=== PATIENT | male | born 1945 | race Caucasian/White ===

== ENCOUNTER 2023-04-23 11:20 | Day surgery (SDC) | payer MEDICARE, OTHER, SELFPAY ==
[2023-04-23] VITALS (15 sets, daily range): BP systolic 137–167; BP diastolic 84–139; BMI 33.6
[2023-04-23 11:55] LABS: Hematocrit 42.9 % (39.0-52.0); Hemoglobin 14.4 g/dL (13.0-18.0); Mean Corp Hgb Conc. 33.6 g/dL (33.0-37.0); Mean Corpuscular Hgb 29.3 pg (27.0-31.0); Mean Corpuscular Volume 87.2 fL (80.0-94.0); Mean Platelet Volume 9.8 fL (7.4-10.4); Platelet Count 237 10^3/uL (130-400); Red Blood Cell Count 4.92 10^6/uL (4.70-6.10); Red Cell Dist. Width 13.6 % (11.5-14.5); White Blood Cell Count 7.9 10^3/uL (4.8-10.8)
[2023-04-23] MEDS: NSS 1000 IV ×2 (12:00→17:18)
--- NOTE | 2023-04-23 16:34 | ITS.CL.CATH ---
Factory Machine Computer Operator - Catheterization
Cardiac Catheterization
Procedure Report:
CARDIAC CATHETERIZATION REPORT
Date of Procedure: 04/23/2023
Referring: Freddie Cruz MD
Indication: Worsening exertional dyspnea with severe left ventricular dysfunction and significant inferolateral ischemia on stress testing
HEMODYNAMIC DATA
AO: 164/92
LV: 164/20
LEFT VENTRICULOGRAPHY: Left ventricular enlargement with apical akinesis with severe anterolateral hypokinesis with EF 28%
CORONARY ANGIOGRAPHY
Dominance: Right
Left Main: Normal
LAD: The LAD is occluded at its origin. A widely patent BLANCO graft touches down into the mid LAD. There are multiple segmental high-grade lesions in the distal LAD extending to the apex. There is backfilling through the LAD to the proximal vessel
and with this retrograde flow there is filling of numerous septal perforators and a moderate to large diagonal branch.
Ramus: There is a large bifurcating ramus. The bifurcation is in the mid portion and there is 1 small daughter branch and 1 large daughter branch. There is 90% stenosis in the large daughter branch just distal to the bifurcation.
Circumflex: The circumflex has a 95% proximal stenosis. This lesion is just proximal to the takeoff of a tiny OM1 and a large OM 2. The distal circumflex gives rise to a small to medium sized diffusely diseased OM 3 and a single left
posterolateral branch. The large OM 2 has 30% mid stenosis.
RCA: The RCA is calcified with a widely patent proximal stent (PAOLA 2001). There is 50% mid RCA stenosis proximal to the crux. There is another 50% distal RCA lesion past the crux. The PDA is a small caliber vessel with moderate diffuse disease.
The RCA terminates with two medium sized right posterolateral branches.
Bypass grafts: The patient underwent single-vessel BLANCO-LAD grafting in 1993. The BLANCO graft remains widely patent with runoff as discussed above
Angioplasty: At the conclusion of diagnostic study we attempted proximal circumflex PCI with an eye toward also treating the ramus intermedius branch. Heparin was used for anticoagulation. An AL 2 guide catheter was used and provided reasonable
backup support. A BMW wire could not be passed through the nearly occluded severely calcified proximal LAD lesion. A Fielder XT wire was able to get through the lesion with persistent effort and some very good fortune. This wire was placed in the
large OM 2. A 1.5 x 10 Euphora balloon was successfully passed through the lesion and angioplasty performed to 17 beverly. The balloon was removed and a 2.25 x 12 NC Euphora was then advanced through the lesion and angioplasty performed to 16 beverly.
There was complete balloon expansion. We attempted to pass a 2.75 x 8 Donny stent across the lesion but this would not advance into the lesion and the undeployed stent was carefully removed. We then advanced a guide liner into the circumflex and
this provided just enough backup support for us to get the stent to the target location where was deployed at 15 beverly then postdilated with a 3.0 x 6 NC Euphora balloon to 18 beverly. The angiographic result was outstanding with no evidence of residual
stenosis. At this point, we turned our attention to the ramus intermedius lesion. GuideLiner was removed from the circumflex. A whisper wire was successfully advanced through the 90% ramus stenosis. Balloon angioplasty with a 1.5 x 10 Euphora
resulted in balloon rupture at approximately 8 beverly. We then placed a 2.0 x 12 NC Euphora which was inflated to 14 beverly for 30 seconds. A second inflation was performed more proximally to 12 beverly. At this point we advanced the guide liner into the
vessel which provided the backup support needed to pass a 2.25 x 26 Nicasio PAOLA across the entire lesion. The stent was deployed at 14 beverly then postdilated with a 2.25 NC trek to 17 beverly. The final angiographic result was outstanding. There were no
procedural complications.
Closure Device: 6 Swedish Angio-Seal RFA
Radiation (mGy): 1984
DAP (cm2.Gy): 142.9
Fluoroscopy time: 25 minutes
CONCLUSIONS
1: Systemic hypertension
2: Left ventricular lodgment with apical akinesis and severe anterolateral hypokinesis with EF 28%
3. Severe multivessel CAD with patent BLANCO-LAD bypass graft
4. Successful stenting of 95% calcific proximal circumflex stenosis using 2.75 x 8 Nicasio PAOLA postdilated with 3.0 mm balloon
5. Successful stenting of 90% ramus intermedius stenosis using 2.25 x 26 Donny PAOLA
6. Recommend dual antiplatelet therapy for minimum 6 and ideally 12 months
7. Continue medical therapy directed at left ventricular dysfunction and CAD. Reassess LVEF in 3 months to determine appropriateness of ICD placement
Copy to: Freddie Cruz MD, Santiago Reaves DO
Adam Dao MD, FAC, [facility]
[2023-04-23] MEDS: SINEMET 25-100 PO (17:17)
[2023-04-23] MEDS: LOW STRENGTH ASPIRIN 81 MG PO (18:15)
--- NOTE | 2023-04-23 18:37 | PTCARENOTE ---
Rec'd report from Aure in medical lab director; rec'd pt AAOX3 w/no c/o CP or SOB, but pt does appear BAINS when scooting himself over from the stretcher to the bed on admission to the unit. Pt's BP elevated & MD aware. Pt's R groin site w/dressing C/D/I w/no
signs or symptoms of bleeding or hematoma. Reiterated pt's bedrest status until 183. Pt verbalizes his understanding. Pt w/call sanchez & phone in reach. No addtl needs at this time. Plan of care ongoing.
--- NOTE | 2023-04-23 22:18 | PTCARENOTE ---
Pt received at start of shift, HR appears to be in Sinus arrhythmia w/1st degree AV block. R groin dressing CDI. NSS infusing at 161mL/hr into LH IV.
Pt OOB w/RN assist to chair. Pt has steady gait, good balance. Educated pt on plan of care and cardiac rehab after discharge. Pt states they do not want to come all the way over here for cardiac rehab and would like to be closer to [place]. Pt
denies any CP, SOb, or lightheadedness/dizziness at this time. Informed to notify RN if any changes, call sanchez within reach.
Pt has splint on R middle finger. Skin under splint inspected, intact w/ no redness. Pt states this is to help with tendon 'jumping'. Has been going on for months, advised to follow up with primary.
[2023-04-23] MEDS: SINEMET 25-100 1 TABLET PO (22:51)
[2023-04-23] MEDS: TYLENOL 650 MG PO (22:52)
--- NOTE | 2023-04-23 23:32 | PTCARENOTE ---
Pt c/o 08/11 pain at R groin cath site. Dressing CDI, soft. PRN tylenol administered.
[2023-04-24 04:18] VITALS: BP 130/100
--- NOTE | 2023-04-24 04:26 | DOWNTIME ---
There was a [employer] Client Manufacturing Supervisor 2Nd Shift Downtime on 04/24/2023 from 0111 to 04/24/2023 at 0405. Downtime documentation of patient's care, including medication administrations, has been reconciled in the electronic record per guidelines. Refer to the
patient's paper chart under the miscellaneous tab to see printed paper medication records and downtime forms.
[2023-04-24 05:00] LABS: Hematocrit 37.8 % (39.0-52.0); Hemoglobin 13.1 g/dL (13.0-18.0); Mean Corp Hgb Conc. 34.7 g/dL (33.0-37.0); Mean Corpuscular Hgb 28.9 pg (27.0-31.0); Mean Corpuscular Volume 83.3 fL (80.0-94.0); Platelet Count 228 10^3/uL (130-400); Red Blood Cell Count 4.54 10^6/uL (4.70-6.10); Red Cell Dist. Width 13.6 % (11.5-14.5); White Blood Cell Count 7.3 10^3/uL (4.8-10.8)
[2023-04-24 05:29] LABS: Blood Urea Nitrogen 17 mg/dl (9-20); Carbon Dioxide 26 mmol/L (22-30); Chloride 101 mmol/L (98-107); Estimated Creatinine Clearance 99 ml/min; Glucose 97 mg/dl (70-99); HDL Cholesterol 49 mg/dl; LDL Cholesterol, Calculated 50 mg/dl; Sodium 133 mmol/L (135-145); Total Cholesterol 125 mg/dl (50-199); Triglyceride 134 mg/dl (10-149); Very Low Density Lipoprotein 26 mg/dl (0-30); eGFR > 60.00
[2023-04-24 06:00] VITALS: BMI 33.5
[2023-04-24 07:23] VITALS: BP 131/81
--- NOTE | 2023-04-24 07:53 | W.PN.CARDCBS ---
Addendum entered and electronically signed by Carson Duarte DO 04/24/23 11:53:
Attestation: I have seen and examined the patient. I can confirm Ms. Álvarez's findings and I agree with her assessment and plan as documented. 77-year-old gentleman with coronary disease status post remote single-vessel bypass (BLANCO to LAD, 1992)
and PCI to the RCA admitted for elective cardiac catheterization after discovery of a new systolic cardiomyopathy on echocardiogram and inferolateral ischemia on SPECT. Cardiac catheterization showed patent BLANCO to LAD with severely diseased
circumflex and ramus status post accessible PCI. The patient was started on appropriate, dual antiplatelet therapy. He is already on the majority of guideline directed medical therapy. We may add dapagliflozin depending on insurance coverage.
Repeat echocardiogram in 2 to 3 months. Referral to cardiac rehab. Stable for outpatient follow-up.
Original Note:
Today's Communication / Plan
-
DAPT w/asa, plavix
outpt echo in 2 months
cardiac rehab
follow w/Dr. Cruz
home today
Impression / Plan
-
PCP: Santiago Reaves MD
CDY: Jose Luis Cruz MD
77 y/o, PMH remote SD w/CAB x1 (1992) and subsequent RCA PCI (2001), presented to outpt cardiology with new BAINS and increasing LE edema. Echo with new EF drop to 35%, and PET NST with inferolateral ischemia and EF 32%.
LHC 04/23- Patent BLANCO-LAD
s/p prox LCx PAOLA and Ramus PAOLA
residual 50% mid and distal RCA stenosis
LVG- LV enlargement with apical AK, severe anterolat HK, EF 28%
IMPRESSION/PLAN:
CAD/ICM/Chronic systolic HFrEF 28-32%
s/p LCx, Ramus PCI
residual 50% m-d RCA
tele- NSR w/PACs, short 5-7bt NSVT
DAPT w/asa, plavix
continue toprol, benazepril
cardiac rehab consult
femoral cath site stable
will need outpt echo in 2 months to eval EF, if no improvement consider primary prevention ICD
consider SGLT2 inhibitor, spironolactone- can start as outpt per primary cards
followup w/Dr. Cruz as scheduled
HTN- stale on amlodipine, HCTZ, mehdi, BB
monitor trends
HLD- lipid profile noted, continue atorvastatin
GERD- stop omeprazole for rxn to plavix- will be on protonix
PreDM/Elevated fasting glucose- HgbA1C pending, management per primary
Progress Note - Crossbow Maker
Subjective
Date of Service: April 24, 2023
Denies cp/palps/dypsnea
oob ambulating
groin site without pain
Objective
Labs:
04/24/23 04:25
04/24/23 04:25
Labs
Hgb 13.1 g/dL (13.0-18.0) 04/24/23 04:25
Hct 37.8 % (39.0-52.0) L 04/24/23 04:25
Plt Count 228 10^3/uL (130-400) 04/24/23 04:25
Sodium 133 mmol/L (135-145) L 04/24/23 04:25
Potassium 4.0 mmol/L (3.5-5.1) 04/24/23 04:25
BUN 17 mg/dl (9-20) 04/24/23 04:25
Creatinine 0.8 mg/dL (0.7-1.3) 04/24/23 04:25
Glucose 97 mg/dl (70-99) 04/24/23 04:25
Vital Signs and I&O:
Vital Signs
Temp Pulse Resp BP Pulse Ox
97.6 F 63 16 130/100 96
04/24/23 07:28 04/24/23 05:15 04/24/23 07:28 04/24/23 04:18 04/24/23 07:28
Vital Signs
Temp Pulse Resp BP Pulse Ox
97.6 F 63 16 130/100 96
04/24/23 07:28 04/24/23 05:15 04/24/23 07:28 04/24/23 04:18 04/24/23 07:28
Intake & Output
04/22/23 04/23/23 04/24/23 04/25/23
06:59 06:59 06:59 06:59
Intake Total 1495 / 1495
Output Total 420 / 420
Balance 1075 / 1075
Physical Exam
Physical Exam
AAOx3, MAEE 5/5
RRR S1 S2 no murmurs
CTA bilat, non labored
soft abd, + bs
right femoral cath site without ht/bleeding, non tender
bilat extremities w/palpable distal pulses,no edema
[2023-04-24 08:34] LABS: ACT-LR - POC > 397 Seconds (116-155)
[2023-04-24 08:34] LABS: ACT-LR - POC > 397 Seconds (116-155)
[2023-04-24] MEDS: SINEMET 25-100 1 TABLET PO (08:38)
[2023-04-24] MEDS: ORETIC 25 MG PO (08:38)
[2023-04-24] MEDS: ZESTRIL 20 MG PO (08:38)
[2023-04-24] MEDS: PLAVIX 75 MG PO (08:38)
[2023-04-24] MEDS: NORVASC 5 MG PO (08:38)
[2023-04-24] MEDS: LOW STRENGTH ASPIRIN 81 MG PO (08:38)
[2023-04-24] MEDS: PROTONIX 40 MG PO (08:38)
[2023-04-24] MEDS: FLOMAX 0.400000000000000022 MG PO (08:38)
[2023-04-24] MEDS: LIPITOR 40 MG PO (08:38)
[2023-04-24] MEDS: TOPROL XL 50 MG PO (08:38)
[2023-04-24] MEDS: DITROPAN 5 MG PO (09:30)
--- NOTE | 2023-04-24 09:31 | CM ---
Addendum entered by Jania Aguirre 04/24/23 12:12:
Reviewed co-pay with Mr. Ferraro and he is agreeable to the $47.00 a month co-pay.
Addendum entered by Jania Aguirre 04/24/23 12:03:
Asked to check co-pay for Farxiga 10 mg daily. Telephone call to [employer], ([phone]) to check on co-pay for Farxiga would be $47.00 a month. He can use the one month free coupon. Placed coupon in his red discharge folder.
Original Note:
Reviewed chart. Met with Mr. Ferraro to review discharge plans. He states prior to admission he resides with his spouse in a spilt-level home with three steps to enter. He states he has four steps to get to his bedroom/full bathroom. He states prior
to admission he was independent with ambulation and adls. He states he does not have any DME in the home. He states he has a prescription plan and uses [facility]. The discharge plan is to return home with his spouse when medically stable.
[2023-04-24 10:36] VITALS: BP 146/96
[2023-04-24] MEDS: FARXIGA 10 MG PO (12:24)
[2023-04-24] MEDS: TYLENOL 650 MG PO (12:45)
--- NOTE | 2023-04-24 13:22 | PTCARENOTE ---
d/c instructions read to pt and pt verbalized understanding. removed IV and tele. pt left with belongings from room, educational material and lab slips. pt left via wheelchair with staff member.
--- NOTE | 2023-04-24 16:21 | W.DS.TRANS ---
DC Summary - Waterproof Bag Sewer
-
Discharge Instructions:
Discharge Diagnosis/Procedures Angioplasty and stent x1 to Left Circumflex and
x1 to Ramus arteries
Diet Low Cholesterol
Driving Restrictions No driving for 24 hours
Blood Work BMP in 1 week- results to Dr. Cruz
Other Services Cardiac Rehab
Stop these medications: STOP omeprazole- will interact with plavix- you
will take protonix instead
Instructions:
Stand-Alone Forms: DC Instructions- Cath/EP Lab
Changes to Home Medications: Yes
Discharge Medications:
DC Medications w/original date entered in [employer]
alfuzosin 10 mg tablet,extended release 24 hr 10 mg PO DAILY 04/23/23
amlodipine 5 mg tablet 5 mg PO DAILY 04/23/23
aspirin 81 mg capsule 81 mg PO DAILY 04/23/23
atorvastatin 40 mg tablet 40 mg PO DAILY 04/23/23
benazepril 20 mg tablet 20 mg PO DAILY 04/23/23
carbidopa 25 mg-levodopa 100 mg tablet 1 tab PO TID 04/23/23
hydrochlorothiazide 25 mg tablet 25 mg PO DAILY 04/23/23
metoprolol succinate 50 mg tablet,extended release 24 hr 50 mg PO DAILY 04/23/23
multivitamin with minerals-iron fumarate 9 mg iron/15 mL oral liquid (Multi Vitamin) 15 ml PO DAILY 04/23/23
oxybutynin chloride 10 mg tablet,extended release 24 hr 10 mg PO DAILY 04/23/23
vitamins A,C,M-nvun-humbww 2,148 mcg-113 mg-45 mg-17.4 mg tablet (PreserVision AREDS) 7,160 tab DAILY 04/23/23
clopidogrel 75 mg tablet 75 mg PO DAILY #90 tabs 04/24/23
dapagliflozin propanediol 10 mg tablet (Farxiga) 10 mg PO DAILY #90 tabs 04/24/23
nitroglycerin 0.4 mg sublingual tablet 0.4 mg sublingual [id number] PRN chest pain #25 tabs 04/24/23
pantoprazole 40 mg tablet,delayed release 40 mg PO DAILY #90 tabs 04/24/23
Home Medication Changes
NEW: clopidogrel, dapagliflozin, nitrostat, pantoprazole
STOP: omeprazole
Pending Results: No
== END 2023-04-24 13:25 | disposition home or self-care (01) ==
LOC: CATH 11:20
PROVIDERS: Nurse Practitioner; ATTENDING PHYSICIAN Internal Medicine Cardiovascular Disease; FAMILY PHYSICIAN Family Medicine
DX: I25.10 Atherosclerotic heart disease of native coronary artery without angina pectoris (principal); I42.9 Cardiomyopathy, unspecified; I50.22 Chronic systolic (congestive) heart failure; I11.0 Hypertensive heart disease with heart failure; E78.5 Hyperlipidemia, unspecified; K21.9 Gastro-esophageal reflux disease without esophagitis; R73.03 Prediabetes; R73.01 Impaired fasting glucose; Z95.1 Presence of aortocoronary bypass graft; I25.2 Old myocardial infarction; R06.09 Other forms of dyspnea; R60.0 Localized edema; I25.84 Coronary atherosclerosis due to calcified coronary lesion; Z79.02 Long term (current) use of antithrombotics/antiplatelets; Z79.82 Long term (current) use of aspirin
CPT/HCPCS: 80048; 80061; 83036; 85027; 85347; 93005; 93459; C1725; C1760; C1769; C1874; C1887; C1894; C9600; Q9967